=== PATIENT | male | born 1970 | race Hispanic/Latino ===

== ENCOUNTER 2020-04-05 10:25 | Emergency (ER) | payer BC, OTHER ==
[2020-04-05] MEDS ORDERED: KETOROLAC TROMETHAMINE 30MG/ML ONE (12:14)
== END 2020-04-05 12:46 | disposition home or self-care (01) ==
LOC: EDH 10:25
DX: M25.512 Pain in left shoulder (principal); G89.29 Other chronic pain; I10 Essential (primary) hypertension; Z79.899 Other long term (current) drug therapy
CPT/HCPCS: 73030; 96372; 99284; J1885

== ENCOUNTER 2024-08-06 19:54 | Emergency (ER) | payer BC ==
[~2024-08-06] VITALS: Ht 170.2 cm; Wt 147.4 kg
[2024-08-06] MEDS: acetaMINOPHEN 500 MG TABLET PO ONE (20:15)
[2024-08-06 20:31] VITALS: BP 150/78; PULSE 90; RESP 18; TEMP 100.5; O2SAT 98
[2024-08-06 20:33] LABS: RAPID GROUP A STREP negative (NEGATIVE)
[2024-08-06 20:42] LABS: COVID19 (SARS ANTIGEN RAPID) PRESUMPTIVE NEGATIVE (NEGATIVE)
[2024-08-06 20:43] LABS: INFLUENZA TYPE A Negative For Type A (NEGATIVE); INFLUENZA TYPE B Negative For Type B (NEGATIVE)
[2024-08-06] MEDS ORDERED: BENZ-39 PO (21:23)
[2024-08-06 21:32] VITALS: TEMP 99.2
== END 2024-08-06 21:42 | disposition home or self-care (01) ==
LOC: EDH 19:54
DX: J06.9 Acute upper respiratory infection, unspecified (principal); R50.9 Fever, unspecified; R05.9 Cough, unspecified; I10 Essential (primary) hypertension; Z20.822 Contact with and (suspected) exposure to COVID-19
CPT/HCPCS: 87426; 87804; 87880

== ENCOUNTER → 2024-11-09 | Outpatient (CLI) | payer BC ==
[~2024-11-09] MED LIST: BENZ-39 PO; IOHEXOL-350 75 ML VIAL IV ONE
--- NOTE | 2024-11-09 16:19 | HMCIMG ---
CT CHEST PE PROTOCOL WWO CONT HISTORY: Elevated d-dimer COMPARISON: None TECHNIQUE: CT angiography of the chest was performed. The study was performed using angiographic technique with maximum intensity projection reconstruction images. Patient was given 75 cc of Omnipaque through intravenous route. FINDINGS: No CT evidence of filling defect is seen to suggest pulmonary embolus. No CT evidence of aortic dissection is seen. No evidence of parenchymal disease is seen. No CT evidence of pleural effusion or pericardial effusion is seen. The heart is enlarged. There is gynecomastia. No evidence of adrenal mass is seen. Degenerative changes of the spine are noted. IMPRESSION: 1. No CT evidence of acute pulmonary embolus is seen. CT was performed with one or more following dose reduction techniques: automated exposure control, adjustment of the mA and kv according to patient's size, or use of a iterative reconstruction technique.
== END | disposition home or self-care (01) ==
LOC: RAH 15:01
PROVIDERS: ATTEND Internal Medicine
DX: I51.7 Cardiomegaly (principal); N62 Hypertrophy of breast; M47.814 Spondylosis without myelopathy or radiculopathy, thoracic region; R79.89 Other specified abnormal findings of blood chemistry; R06.02 Shortness of breath
CPT/HCPCS: 71270; Q9967